=== PATIENT | female | born 1975 | race Caucasian/White ===

== ENCOUNTER → 2018-03-01 13:44 | Outpatient (CLI) | payer OTHER, SELFPAY | PROVIDERS: Family Provider Family Medicine; PCP Family Medicine; Referring Provider Family Medicine; Visit Provider Family Medicine | DX: R07.9 Chest pain, unspecified (principal) | CPT/HCPCS: 84484 ==

== ENCOUNTER 2018-05-16 10:42 | Observation (INO) | payer OTHER, SELFPAY ==
[2018-05-16] VITALS (17 sets, daily range): BP systolic 105–144; BP diastolic 61–93; PULSE 54–94; RESP 14–18; TEMP 36.1–36.9; O2SAT 96–100; BMI 28.9; BMI 28.8
--- NOTE | 2018-05-16 10:56 | EKG12_ITS ---
Test Reason : CP Blood Pressure : / mmHG Vent. Rate : 074 BPM Atrial Rate : 074 BPM P-R Int : 122 ms QRS Dur : 090 ms QT Int : 372 ms P-R-T Axes : 061 065 049 degrees QTc Int : 412 ms Sinus rhythm with marked sinus arrhythmia Nonspecific ST abnormality Abnormal ECG Confirmed by RITCHIE KEEN, CHALINO ([id number]), editor farm journal ROSARIO GUZMAN ([id number]) on 05/18/2018 9:29:11 AM Referred By: JUSTEN Confirmed By:CHALINO DUGAN MD
--- NOTE | 2018-05-16 10:58 | ED.VISSUMM ---
- ER Visit Summary Date of Service: 05/16/18 Chief Complaint: Chest pain History of Present Illness: The patient is a 43 F who presents with chest pain that began last night. Patient states the pain is been intermittent since last night. Patient describes pain as a pressure. Patient states the pain started in her right shoulder and scapular area. Patient states the pain then radiated to her jaw. Patient also admits to some numbness in her left arm. Patient admits to some shortness of breath and lightheadedness with this. Patient also felt like her heart was racing. Patient states she does have a history of SVT. 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 Patient had an EKG done there which showed some ST depression which improved after nitroglycerin. Patient states her right shoulder pain has resolved. Patient still has some pain in her jaw and some numbness in her left arm. Physical Examination: Vital signs are stable. Patient is afebrile. Patient is in no acute distress. Oral mucosa is pink and moist. Neck is supple. Trachea is midline. There is no JVD noted. Heart was regular rate and rhythm. Lungs are clear and equal bilateral. Abdomen is soft. Bowel sounds are normal. There is no tenderness. There is no guarding noted. Skin is warm dry. Cranial nerves II through XII are intact. There are no focal motor or sensory deficits noted. The remaining physical exam is within normal limits. Test Results: EKG showed sinus rhythm this arrhythmia with a rate of 74. There are nonspecific ST changes diffusely. There are no acute ST or T wave changes. CBC, basic metabolic profile, and troponin were obtained and were normal. Chest x-ray does not show any acute cardiopulmonary process. Emergency Department Course and Treatment: Patient was given aspirin at Dr. Schumacher's office. Patient was ordered nitroglycerin here but she declined it at this time. Case was discussed with Dr. Brizuela. He recommended giving the patient Brilinta and starting the patient on heparin. He also recommended keeping the patient n.p.o. until he sees her and determines if she will need a cardiac catheterization today or not. Case was discussed with the hospitalist. She will admit the patient to her service. Patient understood and was agreeable with the plan. All questions were answered. Disposition: Admit to hospital Impression: 1. Unstable angina This note was generated with [employer] software. It may contain incorrect words, spelling, and punctuation that were not noted in review of the chart prior to signing ED Disposition - Plan for ED Patient: Disposition: Acute Care Hospital [facility] Diagnosis: Unstable angina Referrals: Chapito Cobian MD [Primary Care Provider] -
--- NOTE | 2018-05-16 11:01 | ED.DCSUM_ITS ---
- ER Visit Summary Date of Service: 05/16/18 Chief Complaint: Chest pain History of Present Illness: The patient is a 43 F who presents with chest pain that began last night. Patient states the pain is been intermittent since last night. Patient describes pain as a pressure. Patient states the pain started in her right shoulder and scapular area. Patient states the pain then radiated to her jaw. Patient also admits to some numbness in her left arm. Patient admits to some shortness of breath and lightheadedness with this. Patient also felt like her heart was racing. Patient states she does have a history of SVT. 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 Patient had an EKG done the re which showed some ST depression which improved after nitroglycerin. Patient states her right shoulder pain has resolved. Patient still has some pain in her jaw and some numbness in her left arm. Physical Examination: Vital signs are stable. Patient is afebrile. Patient is in no acute distress. Oral mucosa is pink and moist. Neck is supple. Trachea is midline. There is no JVD noted. Heart was regular rate and rhythm. Lungs are clear and equal bilateral. Abdomen is soft. Bowel sounds are normal. There is no tenderness. There is no guarding noted. Skin is warm dry. Cranial nerves II through XII are intact. There are no focal motor or sensory deficits noted. The remaining physical exam is within normal limits. Test Results: EKG showed sinus rhythm this arrhythmia with a rate of 74. There are nonspecific ST changes diffusely. There are no acute ST or T wave changes. CBC, basic metabolic profile, and troponin were obtained and were normal. Chest x-ray does not show any acute cardiopulmonary process. Emergency Department Course and Treatment: Patient was given aspirin at Dr. Anand davis's office. Patient was ordered nitroglycerin here but she declined it at this time. Case was discussed with Dr. Brizuela. He recommended giving the patient Brilinta and starting the patient on heparin. He also recommended keeping the patient n.p.o. until he sees her and determines if she will need a cardiac catheterization today or not. Case was discussed with the hospitalist. She will admit the patient to her service. Patient understood and was agreeable with the plan. All questions were answered. Disposition: Admit to hospital Impression: 1. Unstable angina This note was generated with Dragon dictation software. It may contain incorrect words, spelling, and punctuation that were not noted in review of the chart prior to signing ED Disposition - Plan for ED Patient: Disposition: Acute Care Hospital [facility] Diagnosis: Unstable angina Referrals: Chapito Cobian MD [Primary Care Provider] -
--- NOTE | 2018-05-16 11:05 | RAD_ITS ---
STUDY: X-RAY CHEST REASON FOR EXAM: Female, 43 years old. Chest pain overnight TECHNIQUE: Single AP portable view of the chest. COMPARISON: None. FINDINGS: The lungs are clear and expanded. There is no demonstrated pleural abnormality. Normal size heart. Normal mediastinum and marily. Normal visualized pulmonary arteries. Normal visualized aortic arch and descending thoracic aorta. Normal visualized thoracic spine. Normal visualized ribs, clavicles, and shoulders. There is no demonstrated abnormality of the visualized soft tissue structures of the upper abdomen. RAD/Chest 1 View (Portable) IMPRESSION: Normal x-ray examination of the chest. Electronically Signed: Agustin Russ MD at 11:21 EDT , Service support ,
[2018-05-16 11:07] LABS: Absolute Lymphocyte Count 3.04 X10^3/ul (0.83-4.51); Absolute Neutrophil Count 6.4 X10^3/uL (2.0-7.7); Basophil# 0.06 X10^3/uL; Basophil% 0.6 % (0-1); Eosinophil# 0.03 X10^3/uL; Eosinophils% 0.3 % (0-5); Hematocrit 44.9 % (37-47); Hemoglobin 14.6 g/dl (12.0-15.0); Lymphocyte # 3.04 X10^3/ul (4.0); Lymphocyte % 30.6 % (19-41); Mean Corp Hgb Conc 32.5 g/gl (32-36); Mean Corpuscular Hgb 30.8 pg (27.0-32.0); Mean Corpuscular Volume 94.7 fL (81-99); Monocyte# 0.45 X10^3/uL; Monocyte% 4.5 % (0-10); Neutrophil # 6.35 X10^3/uL (2.7-7.7); Neutrophil % 63.8 % (47-70); POSITIVE COUNT NO; POSITIVE DIFFERENTIAL NO; POSITIVE MORPHOLOGY NO; Platelet Count 271 K/mm3 (150-450); RBC Distribution Width CV 12.8 % (11.6-14.6); RBC Distribution Width SD 43.2 fl (35.1-43.9); Red Blood Count 4.74 M/mm3 (4.2-5.4)
[2018-05-16 11:19] LABS: Anion Gap 9 (5-15); BUN 14 mg/dL (7-18); BUN/Creat Ratio 17.3 RATIO (10-20); Calcium,Total 9.2 mg/dL (8.5-10.1); Chloride 106 mmol/L (98-107); Creatinine, Serum 0.81 mg/dL (0.55-1.02); EST Glomerular Filtration Rate 81 mL/min (>60); Est Glom Filt Rate - Afr Amer 99 mL/min (>60); Estimated Creatinine Clearance 73.32 ml/min; Glucose 95 mg/dL (74-106); Potassium 3.8 mmol/L (3.5-5.1); Sodium Level 140 mmol/L (136-145)
[2018-05-16] MEDS: Ondansetron 4 MG/2 ML Vial IV (11:19)
[2018-05-16] MEDS: TICAGRELOR 90 MG TABLET 180 MG PO (11:55)
[2018-05-16] MEDS: HEPARIN/D5w 25,000 UNITS 25,000 UNITS/250 ML IV.SOLN. 11 UNITS IV (11:59)
--- NOTE | 2018-05-16 12:19 | HP.PCM_ITS ---
Problem List (1) Unstable angina Status: Acute (2) SVT (supraventricular tachycardia) Status: Chronic (3) Abnormal EKG Status: Acute (4) Anxiety Status: Chronic History of Present Illness Date of Admission: 05/16/18 Chief Complaint: Chest discomfort - 1 day. Palpitations - 1 day The patient is a 43 year old F with PMHx of anxiety, SVTs, follows with Dr. Schumacher in the outpatient who comes in with complaints of chest discomfort that started at 1 AM on the day of admission. Patient admits to history of SVTs, much improved with start of Paxil for anxiety. She notes his right shoulder -chest discomfort, that started at 1 AM and radiated across the chest to the other shoulder. She took some Tums and that relieved the discomfort. It was not associated with diaphoresis but was associated with dizziness, blurred vision, palpitations, nausea but no vomiting. This lasted a few minutes. She had an 8:[address] Schumacher. In Dr. Schumacher's office, she admitted to palpitations. Her pulse was felt to be irregular. EKG showed spontaneous downsloping of the inferior ST segment with depression during symptoms and resolved to relieve her symptoms. She received nitroglycerin x1 as well as aspirin 324 mg with resolution of her symptoms. Vitals in the ED show temperature of 98.5F, heart rate 94, blood pressure 138/91, respiratory rate was 18, SPO2 is 99% on room air. Admitting blood work was unremarkable. EKG shows normal sinus rhythm, no acute ST-T changes. X1 has been negative. 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 Lives: Spouse/ Significant Other Smoking Status: Light Smoker (<10/day) Tobacco Use: Cigarettes Alcohol: Occasional Drugs: None - *Family History Maternal History Items: No pertinent history Paternal History Items: Heart Disease, Hypertension Review of Systems Constitutional: Denies: Anorexia, Chills, Fever, Weakness, Weight Change Eyes: Denies: Blurred vision, Cataracts, Conjunctivae Inflammation, Pain, Redness HEENT: Denies: Difficulty Hearing, Difficulty Swallowing, Head Aches, Hearing Changes, Sinus Congestion, Sinus Drainage, Sore Throat Cardiovascular: Reports: Chest Pain, Chest Pressure, Light Headedness, Palpitations. Denies: Claudication, Orthopnea, Paroxysmal Noc. Dyspnea Respiratory: Denies: Cough, Hemoptysis, Shortness of breath at rest, Shortness of breath upon exertion, Sputum production Gastrointestinal: Denies: Abdominal Pain, Hematemesis, Nausea, Melena, Vomiting Genitourinary: Denies: Dysuria, Frequency, Incontinence Musculoskeletal: Denies: Joint Pain, Joint Tenderness Skin: Denies: Rash, Wounds Neurological: Denies: Numbness, Tingling, Focal weakness Psychiatric: Denies: Anxiety, Depression, Homicidal Ideations, Suicidal Ideations Hematologic/ Lymphatic: Denies: Easy Bruising, Easy Bleeding VTE Information - Inpt Only VTE Present on Admission: No VTE Pharm Prophylaxis ordered?: Yes Patient Problems: Active and Suspected Problems Unstable angina (Acute) Abnormal EKG (Acute) - Physical Exam General: Alert, Oriented x3, Cooperative, No apparent distress HEENT: Atraumatic, PERRLA, EOMI, Normocephalic Oral: Moist Mucosa Neck: Supple Lungs: Clear to auscultation, Normal air movement Cardiovascular: Regular rate, Regular Rhythm, Normal S1, Normal S2, No murmurs Abdomen: Bowel Sounds Present, Soft, Non Tender, Non-Distended, No Hepato- splenomegaly Extremities: No edema Skin: No rashes, No breakdown Musculoskeletal: No Tenderness to Palpation of Joints or Extremities Lymphatic: Cervical Adenopathy Neurological: Cranial nerves II-XII grossly intact, Neuro grossly intact Psych/Mental Status: Normal Affect, Appropriate Vital Signs Temp Pulse Resp BP Pulse Ox 98.5 F 61 14 132/93 H 98 05/16/18 10:44 05/16/18 12:04 05/16/18 12:04 05/16/18 12:04 05/16/18 12:04 Oxygen Flow Rate (L/min) 2 Oxygen Delivery Method Nasal Cannula Weight: 75.296 kg Body Mass Index (BMI) 28.9 Laboratory Tests Past 24 Hrs 0305/16/18 05/16/18 10:48 10:48 10:48 WBC 10.0 RBC 4.74 Hgb 14.6 Hct 44.9 MCV 94.7 MCH 30.8 MCHC 32.5 RDW 12.8 RDW Differential 43.2 Plt Count 271 MPV 11.0 Immature Gran % (Auto) 0.200 Neut % (Auto) 63.8 Lymph % (Auto) 30.6 Norman % (Auto) 4.5 Eos % (Auto) 0.3 Baso % (Auto) 0.6 Absolute Neuts (auto) 6.4 Absolute Lymphs (auto) 3.04 Total Counted Not Reportable APTT Pending Sodium 140 Potassium 3.8 Chloride 106 Carbon Dioxide 25.0 Anion Gap 9 BUN 14 Creatinine 0.81 Estim Creat Clear Calc 73.32 Est GFR (MDRD) Af Amer 99 Est GFR (MDRD) Non-Af 81 BUN/Creatinine Ratio 17.3 Glucose 95 Calcium 9.2 Troponin I < 0.015 Assessment/Plan All Active Problems Unstable angina (Acute) Abnormal EKG (Acute) 43 year old F with PMHx of anxiety, SVTs, follows with Dr. Schumacher in the outpatient who comes in with complaints of chest discomfort that started at 1 AM on the day of admission. 1. Chest pain, concerning for unstable angina, h/o SVT, New changes in the EKG in the primary cardiology office. EKG here shows no acute ST-T changes And on IV heparin, loaded with Brilinta. Stable vitals Plan: Admit to PCU, monitor on telemetry,aspirin, cardiology consulted from the ED, follow-up on recommendations. 2. History of SVTs, none seen here, will continue to monitor on telemetry. 3. Anxiety, on paxil 4. DVT PPx- On heparin drip Code Visit Inpatient E&M: 87083 Init Hosp L3 OBSV E&M: 80586 Initial observation care L3
--- NOTE | 2018-05-16 12:19 | NURSING ---
125 CP OBS PAINTSIL
[2018-05-16 12:21] LABS: Partial Thromboplast Time 28.2 Seconds (24.1-36.2)
[2018-05-16 12:58] LABS: Pregnancy, Serum, hCG Quali. NEGATIVE Negative (0-9 Nonpreg)
--- NOTE | 2018-05-16 13:47 | CASEMGMT ---
According to the [employer] website, the following are in-network tertiary facilities: [facility], [facility], [facility], [facility], [facility], [facility], [facility], [facility], [facility], and . Neville MCCLOUD CM
--- NOTE | 2018-05-16 14:59 | PCM.CONS.C ---
Problem List (1) Unstable angina Status: Acute (2) SVT (supraventricular tachycardia) Status: Chronic (3) Abnormal EKG Status: Acute (4) Anxiety Status: Chronic Reason for Consult Date of Consultation: 05/16/18 Reason for Consultation: Unstable angina, abnormal EKG, SVT, anxiety, positive family history of coronary disease History of Present Illness: The patient is a 43 year old F, nondiabetic, current smoker, test negative, status post hysterectomy, with a history of SVT noted in the past, follow with Dr. Schumacher. In addition she has a significant positive family history of premature coronary disease in her mother, father, and several other family members. Patient herself is never had a catheterization and her last stress test was around 5 years ago. Patient is recently undergone some significant psychosocial stresses at home with her son, and due to anxiety was recently started on Paxil about 4 weeks ago. Her anxiety has markedly improved however last evening while she was sleeping around 1 in the morning she awoke with severe substernal chest pain, radiating to her right shoulder and right scapular area. She had associated shortness of breath. Her symptoms improved minimally, and she went to see Dr. Schumacher today in the office. Upon arrival she complained of chest pain which was more intense than the evening before, and an EKG was performed in his office. This was reviewed by me which demonstrated normal sinus rhythm with downsloping ST segment depression along the inferior leads. She was given a sublingual nitroglycerin x2 and baby aspirin and her symptoms improved but did not completely resolved. Her EKG normalized. The patient was transferred to the emergency room and then admitted to the floor where I saw her in consultation. The patient was started on baby aspirin, loaded with 180 mg of Brilinta, and IV heparin drip. Patient states that she is continued to have dull substernal chest pain, but no acute distress. Urgent catheterization was recommended and she was brought to the catheterization lab with results to follow. 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 Denies: Orthopnea, PND, Peripheral Edema, Palpitations, Lightheadedness, Dizziness, Near Syncope, Syncope Respiratory: Denies: Cough, Sputum Production, Hemoptysis Gastrointestinal: Denies: Hematemesis, Hematochezia, Melena Genitourinary: Denies: Dysuria, Hematuria Skin: Denies: Rash Subjectve: Resting comfortably, no acute distress. No reproducible chest pain. Objective: Vital Signs Temp Pulse Resp BP Pulse Ox 98.5 F 62 14 132/93 H 98 05/16/18 10:44 05/16/18 13:13 05/16/18 12:04 05/16/18 12:04 05/16/18 12:04 Oxygen Flow Rate (L/min) 2 Oxygen Delivery Method Nasal Cannula Weight: 162 lb 14.746 oz Body Mass Index (BMI) 28.8 General: Awake, Alert, Oriented x 3 HEENT: PERRL, EOMI, Sclera Non Icteric Neck: Supple, Good ROM, No Lymph Node Enlargement Lungs: Clear to auscultation Cardiovascular: Regular Rhythm, Normal S1, Normal S2, No Murmurs, No Rubs, No Gallops Vascular: No Carotid Bruits, Normal Femoral Pulses, Normal Radial Pulses, Normal Dorsalis Pedal Pulse, Normal Posterior Tibial Pulses Abdomen: Bowel Sounds Present, Soft, Non Tender, No HSM, No Organomegaly Extremities: No Cyanosis, No Clubbing, No edema Neurological: No Focal Motor or Sensory Deficit 05/16/18 10:48: WBC 10.0, RBC 4.74, Hgb 14.6, Hct 44.9, MCV 94.7, MCH 30.8, MCHC 32.5, RDW 12.8, RDW Differential 43.2, Plt Count 271, MPV 11.0, Immature Gran % (Auto) 0.200, Neut % (Auto) 63.8, Lymph % (Auto) 30.6, [facility] % (Auto) 4.5, Eos % (Auto) 0.3, Baso % (Auto) 0.6, Absolute Neuts (auto) 6.4, Total Counted Not Reportable 05/16/18 10:48: Sodium 140, Potassium 3.8, Chloride 106, Carbon Dioxide 25.0, Anion Gap 9, BUN 14, Creatinine 0.81, Est GFR (MDRD) Af Amer 99, Est GFR (MDRD) Non-Af 81, BUN/Creatinine Ratio 17.3, Glucose 95, Calcium 9.2, Troponin I < 0.015 05/16/18 10:48: APTT 28.2 05/16/18 13:55: Troponin I < 0.015 Rhythm: EKG: Normal sinus rhythm, normal axis, normal intervals, sinus arrhythmia, no acute changes. ECHO: Pending Stress Test: Cardiac Cath: Pending PCI: CT Surgery: Holter monitor: EPS: PPM: CXR: Chest CT Scan: Assessment/Plan 1. Unstable angina: The patient has new onset anginal symptoms which woke her up from a sound sleep last evening with several risk factors including strong positive family history, tobacco abuse, and history of SVT in the past. Her first troponin is negative, and her EKG has normalized although her chest pain symptoms have not completely resolved. I recommended the patient undergo an urgent left heart catheterization and coronary angiography as well as LV angiogram as well. If the patient has no significant coronary disease we would consider noncardiac reasons or possibly coronary vasospasm as a result of her recent initiation on Paxil therapy which may cause vasospasm. The meantime she was loaded with 4 baby aspirin, 180 mg of Brilinta, and started on IV heparin drip. Her IV heparin drip is been discontinued in anticipation of her catheterization. The risks/benefits of the procedure were thoroughly explained to the patient and her significant other occluding specific attention to lack of on-site surgical back-up and the patient is agreed to proceed. 2. Tobacco cessation: I strongly recommend the patient discontinue all tobacco products given her positive family history of premature coronary disease. 3. We will order 2D echo with Doppler to document her LV function, pulmonary pressures and valvular status. 4. Hyperlipidemia: Recommend obtaining a fasting lipid profile. Would recommend treating her cholesterol with statin based medications if her LDL is greater than 130. 5. Thank you very much for the opportunity to participate in the cardiac care of your patient. Consultation time took place between 115 and 2 PM. Code Visit Inpatient E&M: 94700 Init Hosp L2
--- NOTE | 2018-05-16 15:03 | CON.PCM_ITS ---
Problem List (1) Unstable angina Status: Acute (2) SVT (supraventricular tachycardia) Status: Chronic (3) Abnormal EKG Status: Acute (4) Anxiety Status: Chronic Reason for Consult Date of Consultation: 05/16/18 Reason for Consultation: Unstable angina, abnormal EKG, SVT, anxiety, positive family history of coronary disease History of Present Illness: The patient is a 43 year old F, nondiabetic, current smoker, test negative, status post hysterectomy, with a history of SVT noted in the past, follow with Dr. Schumacher. In addition she has a significant positive family history of premature coronary disease in her mother, father, and several other family members. Patient herself is never had a catheterization and her last stress test was around 5 years ago. Patient is recently undergone some significant psychosocial stresses at home with her son, and due to anxiety was recently started on Paxil about 4 weeks ago. Her anxiety has markedly improved however last evening while she was sleeping around 1 in the morning she awoke with severe substernal chest pain, radiating to her right shoulder and right scapular area. She had associated shortness of breath. Her symptoms improved minimally, and she went to see Dr. Schumacher today in the office. Upon arrival she complained of chest pain which was more intense than the evening before, and an EKG was performed in his office. This was reviewed by me which demonstrated normal sinus rhythm with downsloping ST segment depression along the inferior leads. She was given a sublingual nitroglycerin x2 and baby aspirin and her symptoms improved but did not completely resolved. Her EKG normalized. The patient was transferred to the emergency room and then admitted to the floor where I saw her in consultation. The patient was started on baby aspirin, loaded with 180 mg of Brilinta, and IV heparin drip. Patient states that she is continued to have dull substernal chest pain, but no acute distress. Urgent catheterization was recommended and she was brought to the catheterization lab with results to follow. 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 [] Past Medical History Allergies/Adverse Reactions: Allergies dicyclomine [From Bentyl] Allergy (Verified 05/16/18 10:47) Shortness of breath Home Medications: Ambulatory Orders Medication Instructions Recorded Loperamide [Imodium] 2 mg PO Q6H PRN PRN 05/16/18 Paroxetine HCl [Paxil] 10 mg PO DAILY 05/16/18 Past Medical History (Chronic Problems): Chronic Problems SVT (supraventricular tachycardia) (Chronic) Anxiety (Chronic) Surgical History: hysterectomy Psychiatric History: No pertinent psych hx OIL DISPENSER History: No pertinent OIL DISPENSER history - *Family History Maternal History Items: No pertinent history Paternal History Items: Heart Disease, Hypertension Lives: Spouse/ Significant Other Smoking Status: Light Smoker (<10/day) Tobacco Use: Cigarettes Alcohol: Occasional Drugs: None Review of Systems - Review of Systems General: Denies: Fever, Night Sweats, Fatigue Cardiovascular: Reports: Chest Discomfort, Chest Discomfort at Rest, Chest Pressure, Chest Tightness, Shortness of Breath, Shortness of Breath at Rest. Denies: Orthopnea, PND, Peripheral Edema, Palpitations, Lightheadedness, Dizziness, Near Syncope, Syncope Respiratory: Denies: Cough, Sputum Production, Hemoptysis Gastrointestinal: Denies: Hematemesis, Hematochezia, Melena Genitourinary: Denies: Dysuria, Hematuria Skin: Denies: Rash Subjectve: Resting comfortably, no acute distress. No reproducible chest pain. Objective: Vital Signs Temp Pulse Resp BP Pulse Ox 98.5 F 62 14 132/93 H 98 05/16/18 10:44 05/16/18 13:13 05/16/18 12:04 05/16/18 12:04 05/16/18 12:04 Oxygen Flow Rate (L/min) 2 Oxygen Delivery Method Nasal Cannula Weight: 162 lb 14.746 oz Body Mass Index (BMI) 28.8 General: Awake, Alert, Oriented x 3 HEENT: PERRL, EOMI, Sclera Non Icteric Neck: Supple, Good ROM, No Lymph Node Enlargement Lungs: Clear to auscultation Cardiovascular: Regular Rhythm, Normal S1, Normal S2, No Murmurs, No Rubs, No Gallops Vascular: No Carotid Bruits, Normal Femoral Pulses, Normal Radial Pulses, Normal Dorsalis Pedal Pulse, Normal Posterior Tibial Pulses Abdomen: Bowel Sounds Present, Soft, Non Tender, No HSM, No Organomegaly Extremities: No Cyanosis, No Clubbing, No edema Neurological: No Focal Motor or Sensory Deficit 05/16/18 10:48: WBC 10.0, RBC 4.74, Hgb 14.6, Hct 44.9, MCV 94.7, MCH 30.8, MCHC 32.5, RDW 12.8, RDW Differential 43.2, Plt Count 271, MPV 11.0, Immature Gran % (Auto) 0.200, Neut % (Auto) 63.8, Lymph % (Auto) 30.6, [place] % (Auto) 4.5, Eos % (Auto) 0.3, Baso % (Auto) 0.6, Absolute Neuts (auto) 6.4, Total Counted Not Rep ortable 05/16/18 10:48: Sodium 140, Potassium 3.8, Chloride 106, Carbon Dioxide 25.0, Anion Gap 9, BUN 14, Creatinine 0.81, Est GFR (MDRD) Af Amer 99, Est GFR (MDRD) Non-Af 81, BUN/Creatinine Ratio 17.3, Glucose 95, Calcium 9.2, Troponin I < 0.015 05/16/18 10:48: APTT 28.2 05/16/18 13:55: Troponin I < 0.015 Rhythm: EKG: Normal sinus rhythm, normal axis, normal intervals, sinus arrhythmia, no acute changes. ECHO: Pending Stress Test: Cardiac Cath: Pending PCI: CT Surgery: Holter monitor: EPS: PPM: CXR: Chest CT Scan: Assessment/Plan 1. Unstable angina: The patient has new onset anginal symptoms which woke her up from a sound sleep last evening with several risk factors including strong positive family history, tobacco abuse, and history of SVT in the past. Her first troponin is negative, and her EKG has normalized although her chest pain symptoms have not completely resolved. I recommended the patient undergo an urgent left heart catheterization and coronary angiography as well as LV angiogram as well. If the patient has no significant coronary disease we would consider noncardiac reasons or possibly coronary vasospasm as a result of her recent initiation on Paxil therapy which may cause vasospasm. The meantime she was loaded with 4 baby aspirin, 180 mg of Brilinta, and started on IV heparin drip. Her IV heparin drip is been discontinued in anticipation of her catheterization. The risks/benefits of the procedure were thoroughly explained to the patient and her significant other occluding specific attention to lack of on-site surgical back-up and the patient is agreed to proceed. 2. Tobacco cessation: I strongly recommend the patient discontinue all tobacco products given her positive family history of premature coronary disease. 3. We will order 2D echo with Doppler to document her LV function, pulmonary pressures and valvular status. 4. Hyperlipidemia: Recommend obtaining a fasting lipid profile. Would recommend treating her cholesterol with statin based medications if her LDL is greater than 130. 5. Thank you very much for the opportunity to participate in the cardiac care of your patient. Consultation time took place between 115 and 2 PM. Code Visit Inpatient E&M: 48494 Init Hosp L2
--- NOTE | 2018-05-16 15:03 | ECHOD_ITS ---
Reason For Study: CHEST PAIN Procedure This was a 2D Doppler, Color Flow transthoracic echocardiogram. Exam performed portable in patient room. Left Ventricle Normal size and thickness. The estimated ejection fraction is 65 %. Normal diastology for age. No regional wall motion abnormalities noted. Right Ventricle Normal size and thickness. Normal systolic function. Atria Normal left atrium. Normal right atrium. Normal atrial septum. Mitral Valve The mitral valve is structurally normal. No prolapse or stenosis seen. Tricuspid Valve Normal tricuspid valve. Mild (1+) tricuspid valve insufficiency. Right ventricular systolic pressure estimated to be 24 mmHg. Aortic Valve Normal aortic valve. Trisinus/trileaflet aortic valve. Pulmonic Valve Normal pulmonic valve. Trivial pulmonic valve insufficiency. Great Vessels Normal aortic root. Normal arch. Normal inferior vena cava. Inferior vena cava collapse with sniff. Pericardium/Pleural No pericardial effusion. MMode/2D Measurements & Calculations LVIDd: 4.1 cm IVSd: 0.88 cm Ao root diam: 2.5 cm LVIDs: 2.5 cm LVPWd: 1.0 cm RVDd: 3.0 cm FS: 38.4 % LAV(MOD-bp): 31.3 ml EDV(MOD-sp4): 72.1 ml EDV(MOD-sp2): 83.5 ml LAV(MOD-bp) Indexed: 17.7 ml/m2 ESV(MOD-sp4): 25.5 ml EF(MOD-sp2): 68.3 % LAV(MOD-sp2): 27.6 ml EF(MOD-sp4): 64.6 % LAV(MOD-sp4): 30.9 ml SV(MOD-sp4): 46.6 ml SV(MOD-sp2): 57.0 ml LA A4 area: 13.9 cm2 LA dimension(2D): 2.5 cm RA A4 area: 13.3 cm2 Time Measurements MV dec time: 0.25 sec Doppler Measurements & Calculations MV E max demarco: 69.1 cm/sec Lat Peak E' Demarco: 11.9 cm/sec Med Peak E' Demarco: 10.3 cm/sec MV A max demarco: 45.3 cm/sec E/E' lat: 5.8 E/E' med: 6.7 MV E/A: 1.5 Ao V2 max: 118.9 cm/sec LV V1 max: 95.6 cm/sec PA V2 max: 87.5 cm/sec Ao max P.7 mmHg LV V1 max P.7 mmHg PI end-d demarco: 70.5 cm/sec TR max demarco: 211.8 cm/sec TR max P.0 mmHg Interpretation Summary The estimated ejection fraction is 65 %. Normal diastology for age. Mild (1+) tricuspid valve insufficiency. Right ventricular systolic pressure estimated to be 24 mmHg. There is no comparison study available. Ordering Physician: Jw Brizuela Referring Physician: MARCIO SANTOYO Performed By: Amarilys Hopper RDCS, RVT
--- NOTE | 2018-05-16 15:33 | CL.D_ITS ---
Patient Name: DYLON LUJAN Study Date: 05/16/2018 Performing: Jw Brizuela MD Ht: 62.99 inches 160 cm : 1975 Wt: 163.14 lbs 74 kg Age: 43 Gender: female BSA: 1.77 PROCEDURE(S) PERFORMED [id number] CLINICAL PROFILE AND INDICATIONS Indications: ACS <= 24 hrs, Suspected CAD Heart Failure: None Stress/Imaging Stress/Image Study Performed: No Angina Classification Anginal Classification w/in 2 Weeks: CCS IV CAD Presentations: Unstable angina. Comorbidities/Risk Factors: Current/Recent Smoker (< 1year) CONCLUSIONS Normal LV size, wall motion,and systolic function Normal coronary arteries RECOMMENDATIONS Management as per referring Assistant Teaching Professor Start cardizem CD 120mg po qd for SVT, possible coronary vasospasm from Paxil. Manual sheath removal. DESCRIPTION OF PROCEDURE The patient arrived to the procedure lab. The risks and benefits of the procedure as well as a full d escription of our services here and current unavailability of surgical backup were fully explained to the patient and/or their significant other prior to the catheterization. The Timeout was completed, verifying the correct patient and procedure. The patient's procedural site was prepped and draped in the usual fashion. Local anesthetic was given subcutaneously to right groin region with Lidocaine 2%. Using a modified Seldinger technique, arterial access was obtained via the right femoral artery, a 4 Fr sheath was inserted Left Coronary Artery selective angiography was performed in multiple views us ing a 4 Fr. JL5 catheter. Right Coronary Artery selective angiography was then performed in multiple views using a 4 Fr. 3DRC catheter. Left Ventriculography was performed in RIBERA projection using a 4 Fr . Pigtail catheter. LV to AO pullback pressures were then recorded.The arterial sheath was pulled and manual compression applied until hemostasis is achieved. CORONARY ANGIOGRAPHY DOMINANCE: Right Dominant LEFT HEART ASSESSMENT Left Ventricular Ejection Fraction: by LV Gram 65 % Normal LV wall motion Normal Left Ventricular systolic function Normal Left Ventricular systolic function LVEDP: 10 mmHg LEFT MAIN: Angiographically normal LEFT ANTERIOR DECENDING ARTERY: Angiographically normal CIRCUMFLEX ARTERY: Angiographically normal RIGHT CORONARY ARTERY: Angiographically normal COMPLICATIONS No Complications PROCEDURE MEDICATIONS Versed 1 mg IV Oxygen: 2 L/min via nasal cannula SUMMARY OF HEMODYNAMIC DATA Time AIR REST ECG 14:57:12 AO 125/65 (91) SA 15:12:52 LV 145/-20, 9 15:18:44 LV 130/-20, 11 15:18:51 LVp 131/-21, 10 15:19:07 AOp 127/66 (94) 15:19:12 Signed By Jw Brizuela MD On 05/16/2018 3:32:40 PM Jw Brizuela MD
[2018-05-16 15:36] LABS: ACT Activated Clotting Time 136 sec (74-137)
--- NOTE | 2018-05-16 19:35 | NURSING ---
Pt ambulated around hallways after bedrest completed for heart cath. Pts drsg is c/d/i, no bleeding or bruising noted, site soft. Pt back to bed and vitals stable.
[2018-05-17 02:00] VITALS: BP 107/57; PULSE 75; RESP 18; TEMP 36.7; O2SAT 96
[2018-05-17 03:38] VITALS: PULSE 61
[2018-05-17 06:25] LABS: Anion Gap 6 (5-15); BUN 12 mg/dL (7-18); Calcium,Total 8.2 mg/dL (8.5-10.1); Chloride 107 mmol/L (98-107); Cholesterol 191 mg/dL (200); Creatinine, Serum 0.75 mg/dL (0.55-1.02); EST Glomerular Filtration Rate 89 mL/min (>60); Est Glom Filt Rate - Afr Amer 108 mL/min (>60); Estimated Creatinine Clearance 79.18 ml/min; Glucose 116 mg/dL (74-106); High Density Lipoprotein 42 mg/dL; Potassium 4.2 mmol/L (3.5-5.1); Sodium Level 139 mmol/L (136-145); Triglycerides 184 mg/dL; Very Low Density Lipoprotein 37 mg/dL (5-40)
[2018-05-17 06:44] VITALS: PULSE 75
[2018-05-17 08:00] VITALS: BP 113/64; PULSE 88; RESP 16; TEMP 36.7; O2SAT 96
[2018-05-17] MEDS: PARoxetine 10 MG Tablet PO (09:31)
[2018-05-17] MEDS: dilTIAZem CD 120 MG Capsule PO (09:31)
[2018-05-17 11:01] VITALS: PULSE 82
--- NOTE | 2018-05-17 11:23 | PCM.PN.CARD ---
Subjectve: Patient feels much better today, no palpitations. Telemetry negative. Right groin is clean/dry/intact. Objective: Vital Signs Temp Pulse Resp BP Pulse Ox 98.1 F 88 16 113/64 96 05/17/18 08:00 05/17/18 08:00 05/17/18 08:00 05/17/18 08:00 05/17/18 08:00 Oxygen Flow Rate (L/min) 2 Oxygen Delivery Method Room Air Weight: 162 lb 14.746 oz Body Mass Index (BMI) 28.8 Intake and Output for Last 24 Hours 05/15/18 05/16/18 05/17/18 23:59 23:59 23:59 Intake Total 680 / 680 Output Total 325 / 325 Balance 680 / 680 -325 / -325 General: Awake, Alert, Oriented x 3 HEENT: PERRL, EOMI, Sclera Non Icteric Neck: Supple, Good ROM, No Lymph Node Enlargement Lungs: Clear to auscultation Cardiovascular: Regular Rhythm, Normal S1, Normal S2, No Murmurs, No Rubs, No Gallops Vascular: No Carotid Bruits, Normal Femoral Pulses, Normal Radial Pulses, Normal Dorsalis Pedal Pulse, Normal Posterior Tibial Pulses Abdomen: Bowel Sounds Present, Soft, Non Tender, No HSM, No Organomegaly Extremities: No Cyanosis, No Clubbing, No edema Neurological: No Focal Motor or Sensory Deficit 05/16/18 10:48: APTT 28.2 05/16/18 13:55: Troponin I < 0.015 05/17/18 05:35: Sodium 139, Potassium 4.2, Chloride 107, Carbon Dioxide 26.0, Anion Gap 6, BUN 12, Creatinine 0.75, Est GFR (MDRD) Af Amer 108, Est GFR (MDRD) Non-Af 89, BUN/Creatinine Ratio 16.0, Glucose 116 H, Calcium 8.2 L, Triglycerides 184, Cholesterol 191, LDL Cholesterol 112, VLDL Cholesterol 37, HDL Cholesterol 42 Rhythm: EKG: ECHO: Stress Test: Cardiac Cath: PCI: CT Surgery: Holter monitor: EPS: PPM: CXR: Chest CT Scan: Medical Necessity - Tobacco Use Smoking Status: Light Smoker (<10/day) Tobacco Use: Cigarettes Assessment/Plan 1. Unstable angina: The patient has new onset anginal symptoms which woke her up from a sound sleep last evening with several risk factors including strong positive family history, tobacco abuse, and history of SVT in the past. Her first troponin is negative, and her EKG has normalized although her chest pain symptoms have not completely resolved. Patient's left heart catheterization showed normal coronary arteries, normal LV function. Patient was started on Cardizem CD 120 mill grams p.o. daily and her palpitations have completely resolved. She has had some minor sinus tachycardia walking around, but my hope is that this will get better. I am also hopeful that the side effects of Cardizem will improve her diarrhea and slow her bowel down as well. We have discontinued her Brilinta, as well as her baby aspirin. My hope is that the Cardizem will promote coronary vasodilatation in case she has syndrome X, as well as preventing SVT. My hope is that she can continue Paxil as well as this has given her significant relief with her anxiety. 2. Tobacco cessation: I strongly recommend the patient discontinue all tobacco products given her positive family history of premature coronary disease. 3. We will order 2D echo with Doppler to document her LV function, pulmonary pressures and valvular status. 4. Hyperlipidemia: Her LDL and HDL cholesterol are fairly well-controlled. No indication for statins at this time. 5. Thank you very much for the opportunity to participate in the cardiac care of your patient. Patient may be discharged home. Patient can either follow-up with me or Dr. Schumacher. Code Visit Inpatient E&M: 94630 Subs Hosp L2
--- NOTE | 2018-05-17 11:24 | DCINST_ITS ---
- Discharge Diagnoses Current Active Problems: Current Active and Chronic Problems History of left heart catheterization (Acute 05/16/18) Normal LV size, wall motion,and systolic function Normal coronary arteries per [facility] @ [facility] 05/16/2018 Unstable angina (Acute) SVT (supraventricular tachycardia) (Chronic) Abnormal EKG (Acute) Anxiety (Chronic) Reason(s) for Visit for Discharge Instructions: Chest pain You will use the following diet at home:: Regular Your food should be the consistency of: Regular Your liquids should be the consistency of: Regular/Thin Discharge Activity: Return to Normal Activity Additional Instructions: Continue on your new prescription for Cardizem. Complete your 24 hour urine testing at home and present to the outpatient lab with urine sample as directed. Allergies/Adverse Reactions: Allergies dicyclomine [From Bentyl] Allergy (Verified 05/16/18 10:47) Shortness of breath Medications to take at Discharge Loperamide [Imodium] 2 mg PO Q6H PRN PRN 05/16/18 Paroxetine HCl [Paxil] 10 mg PO DAILY 05/16/18 Diltiazem CD [Cardizem CD] 120 mg PO DAILY #30 capsule 05/17/18 The following prescriptions were given: Diltiazem CD [Cardizem CD] 120 mg PO DAILY #30 capsule Primary Care Physician: Chapito Cobian MD [Primary Care Provider] - Please follow up with your Primary Care Physician in: within 1-2 weeks Test Results: Test results from this visit will be discussed in further detail at your follow-up appointment, if applicable. Please Follow Up With: Lalo Milian MD When: within 1-2 weeks Proposed Discharge Date: 05/17/18
--- NOTE | 2018-05-17 12:06 | PHA.DC.MC ---
Pharmacy Service has performed discharge medication reconciliation and counseling for this patient. The patient's discharge medication list was reviewed for discrepancies and discrepancies were resolved. The patient was counseled on the following discharge medications and changes in medications for homegoing were reviewed. 1. DILTIAZEM The Reason for Use, instructions for use, and potential side effects were reviewed for all new medications. The patient's questions regarding all of their medications were answered. The patient was able to verbally demonstrate an understanding of their discharge medications. Home Medications Loperamide [Imodium] 2 mg PO Q6H PRN PRN 05/16/18 Paroxetine HCl [Paxil] 10 mg PO DAILY 05/16/18 Diltiazem CD [Cardizem CD] 120 mg PO DAILY #30 capsule 05/17/18
[2018-05-17 12:10] VITALS: BP 106/62; PULSE 69; RESP 16; TEMP 36.7; O2SAT 100
== END 2018-05-17 07:48 | disposition home or self-care (01) ==
LOC: ED 11:39 → PCU 12:23
PROVIDERS: Internal Medicine Cardiovascular Disease; Admitting Provider Internal Medicine; Emergency Provider Emergency Medicine; Family Provider Family Medicine; PCP Family Medicine; Visit Provider Internal Medicine
DX: I20.0 Unstable angina (principal); I47.1 Supraventricular tachycardia; F41.9 Anxiety disorder, unspecified; R94.31 Abnormal electrocardiogram [ECG] [EKG]; Z79.899 Other long term (current) drug therapy; F17.210 Nicotine dependence, cigarettes, uncomplicated; E78.5 Hyperlipidemia, unspecified
CPT/HCPCS: 36415; 71045; 80048; 80061; 82384; 84484; 84703; 85025; 85347; 85730; 93005; 93306; 93458; 96365; 96366; 96375; 99152; 99153; 99218; 99285; 99406; Q9957; Q9967; A4216; C1769; C1894; G0378; J2405

== ENCOUNTER → 2018-05-18 09:40 | Outpatient (CLI) | payer OTHER, SELFPAY ==
[2018-05-16 13:13] VITALS: BMI 28.8
[2018-05-26 03:06] LABS: Epinephrine, 24Ur 6 ug/24 hr (0-20); Norepinephrine, 24Ur 32 ug/24 hr (0-135); VMA, 24UR 3.3 mg/24 hr (0.0-7.5)
[2018-05-28 13:42] LABS: Dopamine, 24Ur 241 ug/24 hr (0-510); Dopamine, UR 166 ug/L (Undefined); Epinephrine, Ur 4 ug/L (Undefined); Norepinephrine, Ur 22 ug/L (Undefined); VMA, UR 2.3 mg/L (Undefined)
== END ==
PROVIDERS: Family Provider Family Medicine; PCP Family Medicine; Referring Provider Internal Medicine; Visit Provider Internal Medicine
DX: R00.2 Palpitations (principal)
CPT/HCPCS: 82384; 84585